=== PATIENT | female | born 1985 | race Caucasian/White ===

== ENCOUNTER 2022-03-12 09:07 | Emergency (ER) | payer OTHER ==
[~2022-03-12] VITALS: Ht 162.6 cm; Wt 77.1 kg
[2022-03-12] MEDS ORDERED: PRENA1 CHEW TA1.4 MG PO (10:04)
== END 2022-03-12 15:34 | disposition home or self-care (01) ==
LOC: ER 09:07
DX: O20.9 Hemorrhage in early pregnancy, unspecified (principal); O34.81 Maternal care for other abnormalities of pelvic organs, first trimester; N83.202 Unspecified ovarian cyst, left side; Z3A.11 11 weeks gestation of pregnancy

== ENCOUNTER 2022-05-14 08:10 | Outpatient (CLI) | payer OTHER ==
[~2022-05-14 08:10] MED LIST: PRENA1 CHEW TA1.4 MG PO
== END 2022-05-14 10:10 | disposition home or self-care (01) ==
LOC: PRENATAL 08:10
PROVIDERS: ATTEND Obstetrics & Gynecology Maternal & Fetal Medicine
DX: O35.9XX0 Maternal care for (suspected) fetal abnormality and damage, unspecified, not applicable or unspecified (principal); O09.219 Supervision of pregnancy with history of pre-term labor, unspecified trimester; O98.919 Unspecified maternal infectious and parasitic disease complicating pregnancy, unspecified trimester; O34.219 Maternal care for unspecified type scar from previous cesarean delivery; O09.529 Supervision of elderly multigravida, unspecified trimester; Z3A.20 20 weeks gestation of pregnancy

== ENCOUNTER 2022-06-16 09:28 | Inpatient (IN) | payer OTHER ==
[~2022-06-16] VITALS: Ht 162.6 cm; Wt 0.9 kg
[2022-07-23] MEDS ORDERED: IBU600 MG PO (09:12)
[2022-07-23] MEDS ORDERED: ACETAMINOPHEN-1 EAC2 PO (09:12)
[2022-07-23] MEDS ORDERED: COLACE100 MG PO (09:13)
== END 2022-07-23 17:29 | disposition home or self-care (01) | DRG 784 ==
LOC: LDR 09:28 → OB/GYN 09:28 → LDR 18:05 → OB/GYN 06-22 09:47 → LDR 07-03 12:12 → OB/GYN 07-07 08:56
PROVIDERS: ADMIT Obstetrics & Gynecology; ATTEND Obstetrics & Gynecology
PROC: BY4CZZZ Ultrasonography of Second Trimester, Single Fetus (ICD-10-PCS; 2022-06-16)
PROC: 4A1HXCZ Monitoring of Products of Conception, Cardiac Rate, External Approach (ICD-10-PCS; 2022-06-16)
PROC: BY4CZZZ Ultrasonography of Second Trimester, Single Fetus (ICD-10-PCS; 2022-06-18)
PROC: BU4CZZZ Ultrasonography of Uterus and Ovaries (ICD-10-PCS; 2022-06-18)
PROC: BY4CZZZ Ultrasonography of Second Trimester, Single Fetus (ICD-10-PCS; 2022-07-02)
PROC: BU4CZZZ Ultrasonography of Uterus and Ovaries (ICD-10-PCS; 2022-07-02)
PROC: BY4FZZZ Ultrasonography of Third Trimester, Single Fetus (ICD-10-PCS; 2022-07-17)
PROC: 0UB70ZZ Excision of Bilateral Fallopian Tubes, Open Approach (ICD-10-PCS; 2022-07-20)
PROC: 10D00Z1 Extraction of Products of Conception, Low, Open Approach (ICD-10-PCS; principal; 2022-07-20 10:00)
DX: O60.13X0 Preterm labor second trimester with preterm delivery third trimester, not applicable or unspecified (principal); O41.02X0 Oligohydramnios, second trimester, not applicable or unspecified; O44.02 Complete placenta previa NOS or without hemorrhage, second trimester; O26.842 Uterine size-date discrepancy, second trimester; O34.211 Maternal care for low transverse scar from previous cesarean delivery; O26.852 Spotting complicating pregnancy, second trimester; Z3A.24 24 weeks gestation of pregnancy; Z37.0 Single live birth; Z20.822 Contact with and (suspected) exposure to COVID-19; Z30.2 Encounter for sterilization; O43.93 Unspecified placental disorder, third trimester; O42.112 Preterm premature rupture of membranes, onset of labor more than 24 hours following rupture, second trimester